=== PATIENT | female | born 1995 | race Asian ===

== ENCOUNTER 2022-09-26 12:15 | Outpatient (CLI) | payer OTHER ==
--- NOTE | 2022-09-26 13:44 | Ultrasound Report ---
PROCEDURE: Pelvic w/Transvaginal INDICATIONS: PELVIC PAIN TECHNIQUE: Real-time scanning was performed of the pelvic organs, with image documentation. Additional endovagi nal scanning was necessary due to incomplete visualization of the adnexal and endometrial structures by transabdominal scanning. COMPARISON: None. FINDINGS: Uterus: Uterus is retroverted and normal in size at 6.3 x 4.1 x 2.7 cm. The myometrium is homogeneo us. The endometrium measures 2.3 mm in combined thickness. No fibroids noted Ovaries: The right ovary measures 4.3 x 2.2 x 3.0 cm, with a calculated ovarian volume of 14.6 cc. The left ovary measures 3.1 x 3.2 x 2.2 cm, with a calculated ovarian volume of 11.4 cc. The ovaries have a normal sonographic appearance. Greater than 12 follicles noted in each ovary.. No adnexal m asses are seen. Other: No pathologic free abdominal or pelvic fluid. IMPRESSION: 1. Unremarkable appearance of uterus. 2. Both ovaries have greater than 12 follicles, which can support a clinical diagnosis of polycystic ovary syndrome 3. Otherwise unremarkable study. Reviewed by: Kel Espinoza MD on 09/26/2022 1:43 PM PST Approved by: Kel Espinoza MD on 09/26/2022 1:43 PM PST Station ID: [id number]
== END 2022-09-26 12:16 | disposition home or self-care (01) ==
LOC: DI 12:15
PROVIDERS: ATTEND Nurse Practitioner Obstetrics & Gynecology
DX: R10.2 Pelvic and perineal pain (principal)